=== PATIENT | male | born 1995 | race Caucasian/White ===

== ENCOUNTER 2016-05-09 14:47 | Emergency (ER) | payer SELFPAY ==
[2016-05-09 15:01] VITALS: BP 130/80
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
[2016-05-09] MEDS ORDERED: Lidocaine 1% MPF* 2 ML VIAL ONE (15:51)
--- NOTE | 2016-05-09 16:03 | RAD ---
Indication: Blunt trauma nasal bones. Lateral views of the nasal arch demonstrates no fracture. No other bone or joint abnormalities identified. IMPRESSION: No fracture of the nasal arch is noted.
== END 2016-05-09 16:45 | disposition home or self-care (01) ==
LOC: UCEAST 14:47
DX: S01.21XA Laceration without foreign body of nose, initial encounter (principal); W22.8XXA Striking against or struck by other objects, initial encounter; Y93.89 Activity, other specified; Y92.9 Unspecified place or not applicable; Y99.0 Civilian activity done for income or pay
CPT/HCPCS: 12011; 70160; 99211; G0463